=== PATIENT | female | born 1945 | race Caucasian/White ===

== ENCOUNTER 2016-05-18 18:44 | Emergency (ER) | payer OTHER, BC ==
[2016-05-18 19:04] VITALS: BP 142/64; PULSE 63; RESP 18; TEMP 97.9; O2SAT 95
--- NOTE | 2016-05-18 19:06 | UCPHY ---
H & P Time Seen by Provider: 05/18/16 19:05 Patient Type: Established HPI/ROS: Chief complaint. Congestion and sore on roof of mouth HPI. 70 year female presents emergency department with increased sinus congestion. She tells me she has chronic sinus congestion has been worse the last couple days. She has burning in the left posterior nose. Today she developed a sore on the roof of her mouth. No trauma. It is painful. She has pressure on her teeth that she has had previously with sinus infections. She had retina surgery 3 weeks ago and is concerned regarding infection. No fever, cough, shortness of breath, chest discomfort. ROS Constitutional. no fever/chills, no weakness Eyes. no problems with vision ENT. Congestion and sore on roof of mouth Cardiovascular. no chest pain Respiratory. no shortness of breath, no cough Abdominal. no abdominal pain, no nausea/vomiting, no diarrhea . no problems urinating MS. no calf pain/swelling, no neck/back pain, no joint pain Skin. no rash Lymph. no swollen glands Neuro. no headache, no dizziness, no difficulty walking or with speech Past Medical/Surgical History: Past medical history recent retina surgery, GERD Social History: , nonsmoker, no alcohol Smoking Status: Never smoked Physical Exam: General Appearance: Alert well-developed female mild distress vital signs are stable. Afebrile Eyes: Pupils equal and round no pallor or injection. ENT, tympanic membranes are normal normal. Pharynx without injection. There is a 1 x 1 cm erythematous somewhat excoriated lesion on the roof of the mouth that is tender to palpation. Looking in both nares it appears normal. Respiratory: There are no retractions, lungs are clear to auscultation. Cardiovascular: Regular rate and rhythm. Gastrointestinal: Abdomen is soft and nontender, no masses, bowel sounds normal. Neurological: Awake and alert, sensory and motor exams grossly normal. Skin: Warm and dry, no rashes. Musculoskeletal: Neck is supple nontender. Extremities symmetrical, full range of motion. Psychiatric: Patient is oriented X 3, there is no agitation. Constitutional: Initial Vital Signs Temperature (C) 36.6 C 05/18/16 19:00 Heart Rate 63 05/18/16 19:00 Respiratory Rate 18 05/18/16 19:00 Blood Pressure 142/64 H 05/18/16 19:00 O2 Sat (%) 95 01/01/17 19:00 O2 Delivery Mode Room Air Allergies/Adverse Reactions: propoxyphene HCl [From Darvon] Allergy (Verified 05/18/16 19:00) Sulfa (Sulfonamide Antibiotics) Allergy (Verified 05/18/16 19:00) thyphoid Allergy (Uncoded 05/18/16 19:00) Home Medications: Medication Instructions Recorded Omeprazole [Prilosec 20 mg] 0 mg PO DAILY 09/24/13 Amoxicillin/Clavulanate Pot 875 mg PO BID #14 tab 05/18/16 [Augmentin 875 MG TAB (*)] Medical Decision Making Procedures: Augmentin orally ED Course/Re-evaluation: Patient remained stable on re-evaluation Patient and I discussed treatment plan including criteria for return importance of follow-up and further evaluation. She expresses understanding and agreement Differential Diagnosis: There appears to be an abrasion or cellulitic lesion on the hard palate on the roof of the mouth. Patient has signs and symptoms of sinusitis which she has had before. Concern for infection potential and the recent eye surgery. Departure - Departure Disposition: Home, Routine, Self-Care Clinical Impression: Cellulitis Qualifiers: Site of cellulitis: mouth Qualifier Code: (K12.2) Cellulitis and abscess of mouth Condition: Good Instructions: Cellulitis (ED) Additional Instructions: Augmentin twice daily. Tylenol and ibuprofen for discomfort. Return for worsening pain, swelling, fever. Recheck in 2 days if not improved Referrals: Tammy Mackey MD [Primary Care Provider] - 2-3 days, if not improved Prescriptions: Amoxicillin/Clavulanate Pot [Augmentin 875 MG TAB (*)] 875 mg PO BID #14 tab - PQRS PQRS Measurement: 134: Depression screening and followup, PRIME -PHQ2 (12 years and older) Over the last 2 weeks, how often have you been bothered by any of the following problems? 1. Feeling down, depressed, or hopeless? 2. Little interest or pleasure in doing things? Patient answered no to both 1 and 2 130: Documentation of medications. Reviewed all patient medications, doses, route and frequency. 226: Do you smoke? No. 47: 65 and older: Advanced care planning. Patient has advanced directive.
[2016-05-18] MEDS ORDERED: AMOXICILLIN/CLAVULANATE POT 875/125 MG TAB PO ONE ×2 (19:18→19:24)
== END 2016-05-18 19:44 | disposition home or self-care (01) ==
LOC: CED 18:44
DX: K12.2 Cellulitis and abscess of mouth (principal); R09.81 Nasal congestion
CPT/HCPCS: 99214-PO; G0463-PO

== ENCOUNTER → 2016-08-28 | Outpatient (CLI) | payer OTHER, BC | LOC: FIMAGING 12:16 | PROVIDERS: ATTEND Orthopaedic Surgery | DX: M79.661 Pain in right lower leg (principal) ==

== ENCOUNTER → 2017-08-18 | Outpatient (CLI) | payer OTHER, BC ==
[~2017-08-18] MED LIST: GADOBUTROL 10 ML VIAL IVP ONE
== END ==
LOC: FIMAGING 13:43
PROVIDERS: ATTEND Internal Medicine
DX: M51.36 Other intervertebral disc degeneration, lumbar region (principal); M51.34 Other intervertebral disc degeneration, thoracic region; M51.26 Other intervertebral disc displacement, lumbar region; M12.88 Other specific arthropathies, not elsewhere classified, other specified site
CPT/HCPCS: 72158; A9585